=== PATIENT | female | born 1985 | race Caucasian/White ===

== ENCOUNTER 2020-01-19 15:09 | Outpatient (CLI) | payer MEDICAID ==
[~2020-01-19] VITALS: Ht 157 cm; Wt 80.1 kg
--- NOTE | 2020-01-19 15:17 | NUR ---
IGNACIO GANDHI presented to unit via ambulatory from ED, accompanied by S.O. , with c/o ELEV BP, PROTEIN IN URINE. IGNACIO GANDHI weighed, gowned, voided, and to bed. EFHM and TOCO applied, VS taken. IGNACIO GANDHI oriented to bed controls, call light, TV, heat, and A/C controls. Pt states just recently found out she was - see Dr Singletary 2-3 times. Admits to having a "meth problem" but quit when she found out she was . Approximately 2-3 weeks ago.
[2020-01-19] MEDS ORDERED: PREN1TAB19 PO (16:06)
[2020-01-19 16:15] VITALS: BP 138/85
[2020-01-19 16:18] VITALS: BP 134/79
[2020-01-19 16:44] VITALS: BP 138/85
[2020-01-19 16:56] LABS: BASOPHILS # (AUTO) 0.1 10^3/uL (0.0-0.1); BASOPHILS % (AUTO) 0 % (0-10); EOSINOPHILS # (AUTO) 0.2 10^3/uL (0.0-0.3); EOSINOPHILS % (AUTO) 1 % (0-10); HEMATOCRIT 35 % (35-52); HEMOGLOBIN 11.4 g/dL (11.5-16.0); LYMPHOCYTES # (AUTO) 2.1 10^3/uL (1.0-4.0); LYMPHOCYTES % (AUTO) 17 % (12-44); MEAN CORPUSCULAR HEMOGLOBIN 29 pg (25-34); MEAN CORPUSCULAR HGB CONC 32 g/dL (32-36); MEAN CORPUSCULAR VOLUME 90 fL (80-99); MEAN PLATELET VOLUME 9.9 fL (9.0-12.2); MONOCYTES # (AUTO) 0.7 10^3/uL (0.0-1.0); MONOCYTES % (AUTO) 6 % (0-12); NEUTROPHILS # (AUTO) 9.2 10^3/uL (1.8-7.8); NEUTROPHILS % (AUTO) 75 % (42-75); PLATELET COUNT 264 10^3/uL (130-400); WHITE BLOOD COUNT 12.3 10^3/uL (4.3-11.0)
[2020-01-19 16:59] LABS: ALBUMIN 3.4 GM/DL (3.2-4.5)
[2020-01-19 17:00] LABS: CHLORIDE 103 MMOL/L (98-107); SODIUM 136 MMOL/L (135-145)
[2020-01-19 17:01] LABS: CALCIUM 8.7 MG/DL (8.5-10.1)
[2020-01-19 17:02] LABS: GLUCOSE 77 MG/DL (70-105); TOTAL PROTEIN 6.8 GM/DL (6.4-8.2)
[2020-01-19 17:03] LABS: CARBON DIOXIDE 22 MMOL/L (21-32)
[2020-01-19 17:04] LABS: BILIRUBIN,TOTAL 0.5 MG/DL (0.1-1.0)
[2020-01-19 17:05] LABS: ALKALINE PHOSPHATASE 229 U/L (40-136)
[2020-01-19 17:06] LABS: CREATININE SERUM 0.71 MG/DL (0.60-1.30); GFR ESTIMATED > 60
[2020-01-19 17:07] LABS: BUN/CREATININE RATIO 11
[2020-01-19 17:09] LABS: ALANINE AMINOTRANSFERASE 13 U/L (0-55)
[2020-01-19 17:13] VITALS: BP 126/84
--- NOTE | 2020-01-19 17:16 | NUR ---
Notified Dr Singletary per text of labs and BP's. Will check cervix per physician orders and if less than 1 cm may be discharged. Pt continues to have contractions that she feels but not uncomfortable. Cervix closed and firm. Encouraged pt to drink plenty of fluids due to dark urine. Outpt instructions given and verbalized understanding. 1750 Ambulated to exit. Appointment 01/23/20.
[2020-01-19 17:28] LABS: BAND NEUTROPHILS 0 %; BASOPHILS % (MANUAL) 0 %; EOSINOPHILS % (MANUAL) 1 %; LYMPHOCYTES % (MANUAL) 16 %; MONOCYTES % (MANUAL) 3 %; NEUTROPHILS % (MANUAL) 80 %; RBC MORPH NORMAL
[2020-01-19 17:52] LABS: BILIRUBIN,URINE NEGATIVE (NEGATIVE); CLARITY,URINE CLEAR; COLOR,URINE YELLOW; GLUCOSE, URINE (UA) NEGATIVE (NEGATIVE); KETONES,URINE NEGATIVE (NEGATIVE); LEUKOCYTE ESTERASE ,URINE NEGATIVE (NEGATIVE); NITRITE,URINE NEGATIVE (NEGATIVE); PROTEIN,URINE TRACE (NEGATIVE)
[2020-01-19 18:03] LABS: BACTERIA,URINE TRACE /HPF
--- NOTE | 2020-01-22 09:32 | Physician Query-Final Dx ---
PETROS GONZALEZ 01/22/20 0932: Clinic Account Progress/Dx Physician Query: Please give diagnosis Please include # weeks gestation Date of Service Jan 19, 2020 at 15:09 NEW SILVA MD 01/22/20 1713: Clinic Account Progress/Dx DIAGNOSIS: Diagnosis Elevated blood pressure in third trimester of PETROS GONZALEZ Jan 22, 2020 09:32 NEW SILVA MD Jan 22, 2020 17:13
== END 2020-01-19 17:50 ==
LOC: WSo 15:09 → LDRP 15:09 → WSo 17:50
PROVIDERS: ATTEND Family Medicine
DX: O13.3 Gestational [pregnancy-induced] hypertension without significant proteinuria, third trimester (principal); Z3A.00 Weeks of gestation of pregnancy not specified
CPT/HCPCS: 36415; 80053; 81000; 82570; 83615; 84156; 84550; 85007; 85027; 99213

== ENCOUNTER 2020-02-01 14:32 | Observation (INO) | payer MEDICAID ==
[~2020-02-01] VITALS: Ht 157 cm; Wt 84.0 kg
[~2020-02-01 14:32] MED LIST: PREN1TAB19 PO
--- NOTE | 2020-02-01 14:37 | NUR ---
IGNACIO GANDHI presented to unit via ambulatory from ED, accompanied by self , with c/o ABN BIOPHYSICAL. IGNACIO GANDHI weighed, gowned, voided, and to bed. EFHM and TOCO applied, VS taken. IGNACIO GANDHI oriented to bed controls, call light, TV, heat, and A/C controls.
[2020-02-01 14:54] VITALS: BP 132/85
[2020-02-01 16:00] VITALS: BP 132/85
--- NOTE | 2020-02-01 17:00 | NUR ---
FHR 130's with accelerations. No contractions noted. Slept this afternoon.
[2020-02-01 19:09] LABS: AMPHETAMINE SCREEN, URINE NEGATIVE (NEGATIVE); BARBITURATE SCREEN URINE NEGATIVE (NEGATIVE); BENZODIAZEPINES SCREEN URINE NEGATIVE (NEGATIVE); CANNABINOID SCREEN, URINE POSITIVE (NEGATIVE); COCAINE SCREEN URINE NEGATIVE (NEGATIVE); METHADONE STAT NEGATIVE (NEGATIVE); METHAMPHETAMINE SCREEN URINE S NEGATIVE (NEGATIVE); OPIATE SCREEN URINE NEGATIVE (NEGATIVE); OXYCODONE STAT NEGATIVE (NEGATIVE); PROPOXYPHENE STAT NEGATIVE (NEGATIVE); TRICYCLIC ANTIDEPRESSANTS SCRE NEGATIVE (NEGATIVE)
--- NOTE | 2020-02-01 20:20 | NUR ---
INITIAL SHIFT ASSESSMENT DONE. VSS. PT PLEASANT AND DENIES ANY PAIN OR NEEDS AT THIS TIME.
[2020-02-01 20:30] VITALS: BP 126/80
[2020-02-01] MEDS ORDERED: diphenhydrAMINE 25 MG TAB (BENADRYL) PO ONE (22:30)
[2020-02-01] MEDS ORDERED: ACETAMINOPHEN 500 MG TAB (TYLENOL) PO PRN (22:30)
--- NOTE | 2020-02-01 22:30 | NUR ---
S/O HAS ARRIVED. MONITORS ADJUSTED. PT C/O SOME RESTLESS LEGS AND BEING UNCOMFORTABLE. OFFERED WARM BLANKET AND DECLINED.
--- NOTE | 2020-02-01 23:00 | NUR ---
DR SILVA CALLED TO REPORT PTS C/O INABILITY TO SLEEP AND CONSTANT LOW ABD PAIN. ORDER RECEIVED FOR TYLENOL AND BENADRYL.
--- NOTE | 2020-02-02 00:10 | NUR ---
VERY VERY ANXIOUS AT THIS TIME. REPORTS RESTLESS LEGS AND INABILITY TO SLEEP. EDUCATED THAT MOST ALL FAST ACTING ANXIETY MEDS ARE NOT SAFE IN , BUT COULD CALL DR SILVA TO ASK ABOUT OPTIONS IF PT DESIRES. PT REPORTS SHE UNDERSTANDS AND WILL CONT TO TRY TO RELAX.
[2020-02-02 02:00] VITALS: BP 121/79
--- NOTE | 2020-02-02 02:00 | NUR ---
VS OBTAINED. MONITORS ADJUSTED. NEW PAPER PLACED IN MONITOR. PT DENIES ANY NEEDS.
--- NOTE | 2020-02-02 04:15 | NUR ---
PT RESTING VERY SOUNDLY. NOT AWAKENED AT THIS TIME. RESP EVEN AND UNLABORED.
--- NOTE | 2020-02-02 05:50 | NUR ---
PT CONT TO REST WELL. NO S/S OF DISTRESS OR DISCOMFORT. PT NOT AWAKENED AT THIS TIME.
[2020-02-02 08:40] VITALS: BP 131/76
--- NOTE | 2020-02-02 08:40 | NUR ---
FHR 130's with accelerations. No contractions. 0911 Dr Singletary called to inquire regarding BPP - results 08/20. If NST reactive may be discharged. 0920 130's with accelerations. Reactive NST. 0945 To exit - ambulatory to exit with S.O.
--- NOTE | 2020-02-02 09:03 | Diagnostic Imaging Report ---
INDICATION: Biophysical profile. FINDINGS: A biophysical profile was performed. There is a single live fetus in a cephalic presentation. The heart rate was recorded at 135 BPM. The amniotic fluid index is 10.8 cm. The placenta is anterior. The overall biophysical profile score is 6 out of 8. There was a 2 point induction given for the lack of breathing movements visualized. IMPRESSION: Biophysical profile score 6 out of 8. Dictated by: Dictated on workstation # [id number]
[2020-02-02 09:45] VITALS: BP 131/76
--- NOTE | 2020-02-03 21:57 | Short Stay Summary ---
History of Present Illness History of Present Illness Reason for visit/HPI at 36 weeks gestation with elevated BP and grade 3 placenta, late care and methamphetamine use in , had outpatient BPP that was 4/8 (breathing, movement), sent for observation and repeat BPP. Date of Admission Feb 01, 2020 at 14:32 Date of Discharge Feb 02, 2020 at 09:45 Time Seen by Provider: 12:00 Attending Physician New Singletary MD Admitting Physician New Singletary MD Consult Allergies and Home Medications Allergies Coded Allergies: No Known Drug Allergies (Unverified , 01/19/20) Home Medications Vit/Iron Fumarate/FA 1 Each Tablet, 1 EACH PO DAILY, (Reported) Patient Home Medication List Home Medication List Reviewed: Yes Past Ldlifdd-Pbvhlw-Rgmbki Hx Patient Social History Alcohol Use: Denies Use Recreational Drug Use: Yes Drug of Choice: meth Smoking Status: Current Everyday Smoker Type Used: Cigars 2nd Hand Smoke Exposure: Yes Recent Foreign Travel: No Contact w/other who traveled: No Reproductive System Expected Date of Delivery: Feb 16, 2020 Hx : 4 Hx Para: 2 Hx Total # of Abortions (Spona: 1 Review of Systems Constitutional: no symptoms reported EENTM: no symptoms reported Respiratory: no symptoms reported Cardiovascular: no symptoms reported Gastrointestinal: no symptoms reported Genitourinary: no symptoms reported Musculoskeletal: no symptoms reported Skin: no symptoms reported Psychiatric/Neurological: No Symptoms Reported Physical Exam Vital Signs Vital Signs - First Documented 02/01/20 02/01/20 14:54 20:30 Temp 36.8 Pulse 86 Resp 16 B/P (MAP) 126/80 (95) Pulse Ox 97 O2 Delivery Room Air Capillary Refill : Less Than 3 Seconds Height, Weight, BMI Height: '" Weight: lbs. oz. kg; 34.07 BMI Method: General Appearance: No Apparent Distress Gastrointestinal: Other (gravid, nontender) Neurologic/Psychiatric: Alert, Other (easily distracted, seems confused intermittently) Skin: Normal Color, Warm/Dry Clinical Quality Measures Admission Status Admission Status: Observation Short Stay Diagnosis Discharge Diagnosis-Short Stay Admission Diagnosis: Abnormal biophysical profile 36 weeks gestation Substance use in Final Discharge Diagnosis: Reactive heart rate tracing, normal repeat BPP, 36 weeks gestation, substance use in , UDS positive for THC Conclusion Conclusion/Plan Repeat testing normal, monitoring normal all night, pt discharged with return precautions for decreased movement, etc. NEW SINGLETARY MD Feb 03, 2020 21:57
== END 2020-02-02 09:45 | disposition home or self-care (01) ==
LOC: LDRP 14:32
PROVIDERS: ADMIT Family Medicine; ATTEND Family Medicine
DX: O28.3 Abnormal ultrasonic finding on antenatal screening of mother (principal); Z3A.36 36 weeks gestation of pregnancy
CPT/HCPCS: 76819; 80306; G0378; G0379; 99211

== ENCOUNTER 2020-02-14 15:06 | Inpatient (IN) | payer MEDICAID ==
[2020-02-14] VITALS (42 sets, daily range): BP systolic 7–169; BP diastolic 31–103
[~2020-02-14] VITALS: Ht 160 cm; Wt 83.8 kg
--- NOTE | 2020-02-14 15:15 | NUR ---
Pt arrived to unit for IOL. Wt obtained and to room 318. Gowned and urine sample obtained. To bed and oriented to room, call light and surroundings. Plan of care reviewed with pt and s.o. present at bedside.
[2020-02-14] MEDS ORDERED: OXYTOCIN PRE-MIX DRIP 500 ML IV SCH (15:16)
[2020-02-14 15:49] LABS: BASOPHILS # (AUTO) 0.1 10^3/uL (0.0-0.1); BASOPHILS % (AUTO) 0 % (0-10); EOSINOPHILS # (AUTO) 0.1 10^3/uL (0.0-0.3); EOSINOPHILS % (AUTO) 0 % (0-10); HEMATOCRIT 36 % (35-52); HEMOGLOBIN 11.7 g/dL (11.5-16.0); LYMPHOCYTES % (AUTO) 14 % (12-44); MEAN CORPUSCULAR HEMOGLOBIN 29 pg (25-34); MEAN CORPUSCULAR HGB CONC 33 g/dL (32-36); MEAN CORPUSCULAR VOLUME 88 fL (80-99); MEAN PLATELET VOLUME 10.5 fL (9.0-12.2); MONOCYTES # (AUTO) 0.9 10^3/uL (0.0-1.0); MONOCYTES % (AUTO) 6 % (0-12); NEUTROPHILS # (AUTO) 11.4 10^3/uL (1.8-7.8); NEUTROPHILS % (AUTO) 79 % (42-75); PLATELET COUNT 273 10^3/uL (130-400); WHITE BLOOD COUNT 14.3 10^3/uL (4.3-11.0)
[2020-02-14 16:10] LABS: ALANINE AMINOTRANSFERASE 19 U/L (0-55); ALBUMIN 3.3 GM/DL (3.2-4.5); ALKALINE PHOSPHATASE 294 U/L (40-136); BILIRUBIN,TOTAL 0.3 MG/DL (0.1-1.0); BUN/CREATININE RATIO 15; CALCIUM 8.7 MG/DL (8.5-10.1); CARBON DIOXIDE 19 MMOL/L (21-32); CHLORIDE 104 MMOL/L (98-107); GFR ESTIMATED > 60; GLUCOSE 106 MG/DL (70-105); POTASSIUM 4.2 MMOL/L (3.6-5.0); SODIUM 134 MMOL/L (135-145)
[2020-02-14] MEDS: D5 LR IV SOLUTION 1,000 ML IV SCH ×2 (16:11→20:06)
--- NOTE | 2020-02-14 16:23 | History & Physical-OB ---
OB - Chief Complaint & HPI Date/Time Date of Admission: Date of Admission: Date seen by a Provider: Feb 14, 2020 Time Seen by a Provider: 15:45 Chief Complaint/History OB-Reason for Admission/Chief: Medical Complication Hx : 4 Hx Para: 2 Expected Date of Delivery: Feb 16, 2020 Gestational Age in Weeks: 39 Gestational Age in Days: 5 Indication for induction: medical complication Other reason for admission: at 39w5d presented to clinic for follow up and found to have hyperten jakob in the 140s. History of Labs O+, antibody neg, RNI. HepB/RPR/HIV neg. Glucola normal. GBS neg. Allergies and Home Medications Allergies Coded Allergies: No Known Drug Allergies (Unverified , 01/19/20) Home Medications Vit/Iron Fumarate/FA 1 Each Tablet, 1 EACH PO DAILY, (Reported) Patient Home Medication List Home Medication List Reviewed: Yes OB - History Hx of Present Care: Yes (late care, first visit at 33 weeks) Obstetrical Complications: Gestational Hypertension, Other (methamphetamine use) Information Induced Hypertension: Yes Maternal Gestational Diabetes: No Hemorrhage: No Obstetrical History Hx : 4 Hx Para: 2 Hx # Term Pregnancies: 2 Hx # Pregnancies: 0 Number of Living Children: 1 Hx Termination: No Hx Total # of Abortions (Spona: 1 Hx Multiple Gestation: No Hx Ectopic : Yes Hx Stillbirth: No Hx Complication: No Hx Induced Hypertens: Yes Hx Maternal Gestational Diabet: No Hx Hemorrhage: No Delivery History Hx Dystocia: No Hx Forceps Assisted Delivery: No Hx Vacuum Extraction Assisted: No Hx Placenta Abnormality: No Hx Distress: No Hx Large For Gestational Age I: No Hx Small for Gestational Age I: No Hx Section: No Hx Vaginal Delivery Post C-Sec: No Hx Blood Disorders: No Adverse Rxn to Tranfusion: No Patient Past Medical History PMHx: Substance abuse SurgHx: Ectopic Social History/Family History HIV/AIDS: No Recent Infectious Disease Expo: No Sexually Transmitted Disease: No Alcohol Use: Denies Use Recreational Drug Use: Yes (methamphetamine use, reported last use around 12/13) Smoking Cessation: Current every day smoker 2nd Hand Smoke Exposure: Yes Immunizations Hepatitis A: No Hepatitis B: No Tetanus Booster (TDap): Less than 5yrs (01/02/20) Rubella: not immune RPR/VDRL: Negative GBS Status: Negative HBsAG: Negative OB - Admission Exam Physical Exam Vitals: Vital Signs 02/14/20 15:41 Temp 36.6 Pulse 86 Resp 18 Pulse Ox 98 O2 Delivery Room Air HEENT: NCAT Abdomen: Non tender Extremities: Edema (trace) Cervical Dilatation: 3cm Effacement: 50% Station: -1 Membranes: Intact Heart Rate: 140's Accelerations: Accelerations Present Short Term Variability: Present Jail Variability: Average (6-25) Contractions on Admission: 6-10 Minutes Apart Arango Scoring Tool (Modified) Dilation (cm): 3-4cm (2) Effacement (%): 51-79% (2) Descent/Station: -1,0 (2) Cervix Consistency: Medium(1) Cervix Position: Posterior (0) Add 1 point for: Each previous vaginal delivery (1) (2) Arango Score: 9 Labs Laboratory Tests Test 02/14/20 15:30 Range/Units White Blood Count 14.3 H 4.3-11.0 10^3/uL Red Blood Count 4.08 3.80-5.11 10^6/uL Hemoglobin 11.7 11.5-16.0 g/dL Hematocrit 36 35-52 % Mean Corpuscular Volume 88 80-99 fL Mean Corpuscular Hemoglobin 29 25-34 pg Mean Corpuscular Hemoglobin Concent 33 32-36 g/dL Red Cell Distribution Width 14.5 10.0-14.5 % Platelet Count 273 130-400 10^3/uL Mean Platelet Volume 10.5 9.0-12.2 fL Immature Granulocyte % (Auto) 1 % Neutrophils (%) (Auto) 79 H 42-75 % Lymphocytes (%) (Auto) 14 12-44 % Monocytes (%) (Auto) 6 0-12 % Eosinophils (%) (Auto) 0 0-10 % Basophils (%) (Auto) 0 0-10 % Neutrophils # (Auto) 11.4 H 1.8-7.8 10^3/uL Lymphocytes # (Auto) 2.0 1.0-4.0 10^3/uL Monocytes # (Auto) 0.9 0.0-1.0 10^3/uL Eosinophils # (Auto) 0.1 0.0-0.3 10^3/uL Basophils # (Auto) 0.1 0.0-0.1 10^3/uL Immature Granulocyte # (Auto) 0.1 0.0-0.1 10^3/uL Sodium Level 134 L 135-145 MMOL/L Potassium Level 4.2 3.6-5.0 MMOL/L Chloride Level 104 98-107 MMOL/L Carbon Dioxide Level 19 L 21-32 MMOL/L Anion Gap 11 5-14 MMOL/L Blood Urea Nitrogen 12 7-18 MG/DL Creatinine 0.80 0.60-1.30 MG/DL Estimat Glomerular Filtration Rate > 60 BUN/Creatinine Ratio 15 Glucose Level 106 H 70-105 MG/DL Uric Acid 5.0 2.6-7.2 MG/DL Calcium Level 8.7 8.5-10.1 MG/DL Corrected Calcium 9.3 8.5-10.1 MG/DL Total Bilirubin 0.3 0.1-1.0 MG/DL Aspartate Amino Transf (AST/SGOT) 27 5-34 U/L Alanine Aminotransferase (ALT/SGPT) 19 0-55 U/L Alkaline Phosphatase 294 H 40-136 U/L Lactate Dehydrogenase 227 H 125-220 U/L Total Protein 7.0 6.4-8.2 GM/DL Albumin 3.3 3.2-4.5 GM/DL OB - Assessment/Plan/Diagnosis Assessment Admission Dx Term intrauterine at 39 weeks gestation Gestational hypertension History of methamphetamine use Group B strep negative Rubella non-immune Admission Status: Inpatient Order (span 2 midnights) Reason for Inpatient Admission: Induction, labor, delivery and course Plan Plan: Induction Induction Method: per Pitocin Protocol Other Plan AROM done at time of exam with clear fluid check preeclampsia labs social media coordinator consult NEW SILVA MD Feb 14, 2020 16:23
[2020-02-14] MEDS ORDERED: fentaNYL 2 mcg/ml BUPIVA 0.125 100 ML ONE (16:41)
[2020-02-14 16:42] LABS: AMPHETAMINE SCREEN, URINE NEGATIVE (NEGATIVE); BARBITURATE SCREEN URINE NEGATIVE (NEGATIVE); BENZODIAZEPINES SCREEN URINE NEGATIVE (NEGATIVE); CANNABINOID SCREEN, URINE POSITIVE (NEGATIVE); COCAINE SCREEN URINE NEGATIVE (NEGATIVE); METHADONE STAT NEGATIVE (NEGATIVE); METHAMPHETAMINE SCREEN URINE S NEGATIVE (NEGATIVE); OPIATE SCREEN URINE NEGATIVE (NEGATIVE); OXYCODONE STAT NEGATIVE (NEGATIVE); PROPOXYPHENE STAT NEGATIVE (NEGATIVE); TRICYCLIC ANTIDEPRESSANTS SCRE NEGATIVE (NEGATIVE)
[2020-02-14 16:47] LABS: URINE CREATININE FOR RATIO 274 MG/DL (30-125)
[2020-02-14 16:48] LABS: URINE PROTEIN FOR RATIO ONLY 32 MG/DL (6-12)
[2020-02-14 17:06] LABS: EOSINOPHILS % (MANUAL) 2 %; LYMPHOCYTES % (MANUAL) 16 %; MONOCYTES % (MANUAL) 3 %; NEUTROPHILS % (MANUAL) 79 %; RBC MORPH NORMAL
[2020-02-14] MEDS ORDERED: fentaNYL INJECTION 100 MCG/2 ML AMP ONE (18:42)
[2020-02-14] MEDS ORDERED: LACTATED RINGERS 1,000 ML IV ONE (18:43)
[2020-02-14] MEDS ORDERED: fentaNYL 2 mcg/ml BUPIVA 0.125 100 ML IV SCH (18:43)
[2020-02-14] MEDS ORDERED: NALOXONE 0.4 MG/ML 1 ML (NARCAN) VIAL IV PRN (18:45)
[2020-02-14] MEDS ORDERED: CATHETER FLUSH 10 ML SYR IV PRN (18:45)
[2020-02-14] MEDS: CALCIUM CARBONATE 500 MG (TUMS) TAB.CHEW PO NR ×2 (20:06→23:06)
[2020-02-14] MEDS ORDERED: CATHETER FLUSH 10 ML SYR IV SCH (22:00)
[2020-02-14] MEDS ORDERED: MINERAL OIL CONCENTRATE 99.9% 15 ML UDC ONE (22:07)
[2020-02-15] VITALS (12 sets, daily range): BP systolic 111–157; BP diastolic 60–89
--- NOTE | 2020-02-15 00:11 | OB Labor & Delivery Record ---
Vag Delivery Note Vag Delivery Note Date of Delivery: 02/15/20 Preoperative Diagnosis: Fallon Small is a (34 /Para 4 / 2,Gestational Age (wks)39with 5 days Postoperative Diagnosis: Same Surgeon: NEW SILVA Temperer: Opal Tillman, MS3 Anesthesia: Epidural Delivery Type: Findings: Viable male , apgars 9/9, weight 7#5 Lacerations: periurethral abrasions Intact placenta with 3 vessel cord. No nuchal cord, body cord or shoulder dystocia Estimated Blood Loss: 200 ml Complications: None Condition: Stable Description of Procedure: The patient is a 34 year old female who presented for induction of labor due to gestational hypertension. She was admitted and informed consent was obtained. Her labor course was unremarkable. She progressed to complete dilatation and began to push. She was then set up for delivery. The 's head was delivered atraumatically in the OA position. The shoulders and remainder of the infant's body were then delivered without difficulty. Upon delivery, the infant was vigorous and placed on maternal abdomen. After a delay, the cord was doubly clamped and cut and the infant was handed off to the pediatric staff. An intact placenta with 3-vessel cord delivered via Mynor and there was found to be minimal bleeding.~ Vigorous fundal massage was performed and the fundus was found to be firm. IV oxytocin was given. Examination of the vagina and perineum revealed periurethral abrasions and no laceration requiring repair. Following the delivery, sponge, instrument and needle counts were correct. Mom and baby were both in stable condition in the labor suite. Vitals - Labs Vital Signs - I&O Vital Signs Date Time Temp Pulse Resp B/P (MAP) Pulse Ox O2 Delivery O2 Flow Rate FiO2 02/14/20 21:55 65 18 125/56 (79) 100 02/14/20 21:40 60 18 116/67 (83) 100 02/14/20 21:25 59 18 112/66 (81) 100 02/14/20 21:10 59 18 127/79 (95) 99 02/14/20 20:55 58 18 121/72 (88) 100 02/14/20 20:40 70 18 121/70 (87) 100 02/14/20 20:25 36.0 85 18 110/67 (81) 100 02/14/20 20:10 68 18 119/65 (83) 100 02/14/20 20:05 84 18 111/64 (80) 100 02/14/20 20:00 73 18 81/50 (60) 100 02/14/20 19:45 65 18 108/56 (73) 100 02/14/20 19:40 69 18 116/63 (80) 100 02/14/20 19:38 109/58 (75) 02/14/20 19:35 74 18 109/59 (76) 96 02/14/20 19:34 69/31 (44) 02/14/20 19:33 72/39 (50) 02/14/20 19:30 70 18 77/40 (52) 97 02/14/20 19:25 86 18 107/51 (69) 97 02/14/20 19:20 105 18 108/59 (75) 99 02/14/20 19:15 96 18 138/61 (86) 99 02/14/20 19:10 82 18 145/69 (94) 98 02/14/20 19:05 84 18 147/69 (95) 98 02/14/20 19:00 85 18 148/69 (95) 98 02/14/20 18:55 86 18 167/74 (105) 98 02/14/20 18:50 86 18 169/74 (105) 98 02/14/20 18:45 83 18 163/103 (123) 98 02/14/20 18:30 72 18 139/83 (101) 02/14/20 18:15 73 18 134/76 (95) 02/14/20 18:00 66 18 119/74 (89) 02/14/20 17:45 73 18 126/74 (91) 02/14/20 17:30 74 18 128/72 (90) 02/14/20 17:15 78 18 131/83 (99) 02/14/20 17:00 76 18 128/81 (97) 02/14/20 15:41 36.6 86 18 98 Room Air 02/14/20 15:30 99 18 148/90 (109) 98 I & O 02/15/20 07:00 Intake Total 1000 ml Balance 1000 ml Labs Laboratory Tests 02/14/20 15:30: White Blood Count 14.3H, Red Blood Count 4.08, Hemoglobin 11.7, Hematocrit 36, Mean Corpuscular Volume 88, Mean Corpuscular Hemoglobin 29, Mean Corpuscular Hemoglobin Concent 33, Red Cell Distribution Width 14.5, Platelet Count 273, Mean Platelet Volume 10.5, Immature Granulocyte % (Auto) 1, Neutrophils (%) (Auto) 79H, Lymphocytes (%) (Auto) 14, Monocytes (%) (Auto) 6, Eosinophils (%) (Auto) 0, Basophils (%) (Auto) 0, Neutrophils # (Auto) 11.4H, Lymphocytes # (Auto) 2.0, Monocytes # (Auto) 0.9, Eosinophils # (Auto) 0.1, Basophils # (Auto) 0.1, Immature Granulocyte # (Auto) 0.1, Neutrophils % (Manual) 79, Lymphocytes % (Manual) 16, Monocytes % (Manual) 3, Eosinophils % (Manual) 2, Blood Morphology Comment NORMAL, Sodium Level 134L, Potassium Level 4.2, Chloride Level 104, Carbon Dioxide Level 19L, Anion Gap 11, Blood Urea Nitrogen 12, Creatinine 0.80, Estimat Glomerular Filtration Rate > 60, BUN/Creatinine Ratio 15, Glucose Level 106H, Uric Acid 5.0, Calcium Level 8.7, Corrected Calcium 9.3, Total Bilirubin 0.3, Aspartate Amino Transf (AST/SGOT) 27, Alanine Aminotransferase (ALT/SGPT) 19, Alkaline Phosphatase 294H, Lactate Dehydrogenase 227H, Total Protein 7.0, Albumin 3.3 02/14/20 16:10: Urine Protein 32H, Urine Creatinine 274H, Urine Protein/Creatinine Ratio 0.12, Urine Opiates Screen NEGATIVE, Urine Oxycodone Screen NEGATIVE, Urine Methadone Screen NEGATIVE, Urine Propoxyphene Screen NEGATIVE, Urine Barbiturates Screen NEGATIVE, Ur Tricyclic Antidepressants Screen NEGATIVE, Urine Phencyclidine Screen NEGATIVE, Urine Amphetamines Screen NEGATIVE, Urine Methamphetamines Screen NEGATIVE, Urine Benzodiazepines Screen NEGATIVE, Urine Cocaine Screen NEGATIVE, Urine Cannabinoids Screen POSITIVEH NEW SILVA MD Feb 15, 2020 00:11
[2020-02-15] MEDS ORDERED: MEASLES,MUMPS,RUBELLA 1 EA INJ SQ ONE (00:45)
[2020-02-15] MEDS ORDERED: MINERAL OIL CONCENTRATE 99.9% 15 ML UDC TOP PRN (00:45)
[2020-02-15] MEDS ORDERED: BENZOCAINE/MENTHOL (DERMOPLAST) 60 ML CAN TP PRN (00:45)
[2020-02-15] MEDS ORDERED: WITCH HAZEL(TUCKS) 40 EA JAR TOP PRN (00:45)
[2020-02-15] MEDS ORDERED: OXYTOCIN PRE-MIX DRIP 500 ML IV SCH (00:45)
[2020-02-15] MEDS ORDERED: ACETAMINOPHEN 500 MG TAB (TYLENOL) ONE (01:00)
[2020-02-15] MEDS: ACETAMINOPHEN 500 MG TAB (TYLENOL) PO SCH ×4 (01:02→20:29)
--- NOTE | 2020-02-15 02:05 | NUR ---
Patient ambulated to bathroom with standby assist without difficulty. Positive void noted. Light rubra bleeding, no clots noted.
--- NOTE | 2020-02-15 02:10 | NUR ---
Patient transferred to PP room 309, accompanied by staff, Infant in crib, and S.O. Patient oriented to room, room service, call light, bed controls, and thermostat. PP packet given and explained, patient verbalized understanding. Fresh ice water provided.
[2020-02-15] MEDS ORDERED: CATHETER FLUSH 10 ML SYR IV SCH (06:00)
--- NOTE | 2020-02-15 07:16 | Anesthesia-Regional Post-Op ---
Regional Patient Condition Mental Status: Alert, Oriented x3 Circulation: Same as Pre-Op Headache: Absent Sensation: Full Recovery Motor Block: Absent Post Op Complications Complications None Follow Up Care/Instructions Patient Instructions None needed. Anesthesia/Patient Condition Patient is doing well, no complaints, stable vital signs, no apparent adverse anesthesia problems. No complications reported per nursing. ROSETTE BORGES CRNA Feb 15, 2020 07:16
[2020-02-15] MEDS: DOCUSATE SODIUM 100 MG (COLACE) CAP PO SCH ×2 (08:05→20:28)
--- NOTE | 2020-02-15 08:05 | NUR ---
RN to room for assessment. VSS. FFU/-1. Pt reports minimal bleeding and no clots expressed. S.O at bedside, feeding . Mother denies any pain and denies any needs or concerns at this time.
--- NOTE | 2020-02-15 11:42 | NUR ---
CM/SS visited with patient for social service consult. [facility] report ID: [id number] The patient (mother of baby) and Father of baby (FOB) were laying in bed with baby. They were both pleasant and willing to discuss discharge. Home: The patient lives with the FOB's mother. They report that she is a good support for them. They verbalized they have everything they need at home for baby. They received a car seat from [facility]. Substance use: The patient reports that she does have a past history of drug use. The patient admitted to using Methamphetamines at the beginning of due to not knowing she was . She stated once she found out she stopped use. The patient's UDS is positive for Marijuana. The patient reports that she is planning to meet with India Gonzalez at the [facility] for outpatient addiction counseling. Resources: The patient is not set up with [facility] but states they have the number and are planning to call. CM/SS discussed resources for Healthy Families, Parents as Teachers, to 3, and [facility]. The patient was very interested in these services; however, patient wanted to set up referrals for herself. She is connected with the [facility]. Custody: The patient reports she has joint custody of her daughter. The father of the son has full custody. Employment: The patient is not employed nor is she receiving financial assistance. The FOB is receiving "PUA" that is financial assistance for Covid. He plans to return to work soon. No further needs at this time.
--- NOTE | 2020-02-15 20:25 | NUR ---
INITIAL SHIFT ASSESSMENT DONE. PT DENIES ANY PAIN OR C/O'S.
--- NOTE | 2020-02-15 20:30 | NUR ---
PT UP TO SHOWER AT THIS TIME.
--- NOTE | 2020-02-15 23:50 | NUR ---
SPRITE GIVEN. DENIES ANY NEEDS.
[2020-02-16 03:20] VITALS: BP 141/81
--- NOTE | 2020-02-16 03:20 | NUR ---
TYLENOL ADMINISTERED. PT DENIES ANY PAIN OR C/O'S.
[2020-02-16] MEDS: ACETAMINOPHEN 500 MG TAB (TYLENOL) PO SCH ×2 (03:21→09:56)
[2020-02-16 05:35] LABS: BASOPHILS # (AUTO) 0.1 10^3/uL (0.0-0.1); BASOPHILS % (AUTO) 1 % (0-10); EOSINOPHILS # (AUTO) 0.2 10^3/uL (0.0-0.3); EOSINOPHILS % (AUTO) 2 % (0-10); HEMATOCRIT 36 % (35-52); HEMOGLOBIN 11.4 g/dL (11.5-16.0); LYMPHOCYTES # (AUTO) 3.1 10^3/uL (1.0-4.0); LYMPHOCYTES % (AUTO) 27 % (12-44); MEAN CORPUSCULAR HEMOGLOBIN 29 pg (25-34); MEAN CORPUSCULAR HGB CONC 32 g/dL (32-36); MEAN CORPUSCULAR VOLUME 92 fL (80-99); MEAN PLATELET VOLUME 10.5 fL (9.0-12.2); MONOCYTES # (AUTO) 0.8 10^3/uL (0.0-1.0); MONOCYTES % (AUTO) 7 % (0-12); NEUTROPHILS % (AUTO) 62 % (42-75); PLATELET COUNT 249 10^3/uL (130-400); WHITE BLOOD COUNT 11.2 10^3/uL (4.3-11.0)
--- NOTE | 2020-02-16 06:20 | NUR ---
PT CONT TO DENY NEEDS.
--- NOTE | 2020-02-16 07:46 | Discharge Summary ---
Diagnosis/Chief Complaint Date of Admission Feb 14, 2020 at 15:17 Date of Discharge February 16, 2020 Admission Diagnosis Admission Diagnosis 1. Intrauterine at 39 weeks 5 days gestation 2. History of methamphetamine use 3. Gestational hypertension Discharge Diagnosis 1. Intrauterine at 39 weeks 5 days gestation 2. History of methamphetamine use 3. Gestational hypertension Chief Complaint/HPI Chief Complaint/HPI 34-year-old 4 now term for who initially presented to labor and delivery during the evening of February 14, 2020. Patient was at 39 weeks 5 days gestation. She received her care through [facility] and was followed by Dr. Singletary. Discharge Summary-OBS Procedures 1. Epidural per anesthesia 2. Spontaneous vaginal deliveryDr. Hayder Discharge Physical Examination Allergies: Coded Allergies: No Known Drug Allergies (Unverified , 01/19/20) Vitals & I&Os Vital Sign - Last 12Hours Date Time Temp Pulse Resp B/P (MAP) Pulse Ox O2 Delivery O2 Flow Rate FiO2 02/16/20 03:20 36.8 71 18 141/81 (101) 100 Room Air General Appearance: No Acute Distress Respiratory: Clear to Auscultation Cardiovascular: Regular Rate Abdominal: Soft (with uterus firm) Hospital Course Was the Problem List Reviewed?: Yes following admission patient underwent labor course and ultimately delivered during the late evening of February 14, 2020 spontaneous vaginal. Infant was delivered a term viable male with Apgars of 9 at 1 minute and 9 at 5 minutes. Mother had no perineal lacerations. See labor and delivery note for full details. Following delivery she underwent routine care orders. Social s ervices was counseled regarding her home situation. visitor services information assistant reviewed and cleared her to go home. Her hemoglobin on admission was 11.7 and this was compared to dismissal of 11.4. Patient was very stable hemodynamically. She was without any lightheadedness. She tolerated a regular diet. She denied any chest pain or leg pain. She was felt ready for dismissal during the day of February 16, 2020. Labs Laboratory Tests 02/15/20 11:25: Syphilis Serology Non-Reactive 02/16/20 05:21: White Blood Count 11.2H, Red Blood Count 3.94, Hemoglobin 11.4L, Hematocrit 36, Mean Corpuscular Volume 92, Mean Corpuscular Hemoglobin 29, Mean Corpuscular Hemoglobin Concent 32, Red Cell Distribution Width 14.6H, Platelet Count 249, Mean Platelet Volume 10.5, Immature Granulocyte % (Auto) 1, Neutrophils (%) (Auto) 62, Lymphocytes (%) (Auto) 27, Monocytes (%) (Auto) 7, Eosinophils (%) (Auto) 2, Basophils (%) (Auto) 1, Neutrophils # (Auto) 7.0, Lymphocytes # (Auto) 3.1, Monocytes # (Auto) 0.8, Eosinophils # (Auto) 0.2, Basophils # (Auto) 0.1, Immature Granulocyte # (Auto) 0.1 Discharge Instructions to patient/family Please see electronic discharge instructions given to patient. Discharge Medications Reviewed and agree with Discharge Medication list on patient's Discharge Instruction sheet Clinical Quality Measures DVT/VTE Risk/Contraindication: Risk Factor Score Per Nursin RFS Level Per Nursing on Admit: 2=Moderate Copy Copies To 1: NEW SINGLETARY MD, DANIEL J MD Feb 16, 2020 07:46
--- NOTE | 2020-02-16 07:49 | Discharge Inst-Women's Service ---
Discharge Inst-Women's Serv Depart Medication/Instructions New, Converted or Re-Newed RX: Other Instructions May take ibuprofen 200 mg tablet for cramping. May utilize 3 tablets for a total dose of 600 mg every 6 hours as needed. Problems Reviewed?: Yes Consults/Follow Up Additional Follow Up: Yes (Dr. Singletary in 6 weeks) Activity Activity: Activity as Tolerated Driving Instructions: No Driving for 1 Week Nothing Inside Vagina: No [place] (for 6 weeks) Diet Discharge Diet: Regular Diet Return to The Hospital For: as below Symptoms to Report to : Bleeding Excessive, Fever Over 101 Degrees F, Vaginal Discharge Foul For Any Problems or Questions: Contact Your Physician MARKO HEATON MD Feb 16, 2020 07:49
[2020-02-16 08:05] VITALS: BP 132/74
[2020-02-16] MEDS: DOCUSATE SODIUM 100 MG (COLACE) CAP PO SCH (09:55)
--- NOTE | 2020-02-16 10:15 | NUR ---
IGNACIO SMALL demonstrates understanding of discharge instructions and accurately returns instructions upon questioning. Copy of Post-Discharge Instructions and Medication Discharge Instructions given to Jose Small. IGNACIO SMALL is able to manage continuing needs after discharge. Patients belongings returned to patient. Skin dry and intact; no breakdown noted. Patient discharged from 3309- on at 1015 . IGNACIO SMALL left floor via ambulation, accompanied by significant other and women services staff.
--- NOTE | 2020-02-16 11:39 | NUR ---
KARAN/ALICE follow up. KARAN/ALICE received message from care management that an Nicole at [facility] ([phone]) needed a call back SANTINO. This message was received at 10:52 a.m. KARAN/ALICE contacted Nicole back at 11:05 a.m. to discuss patient. Nicole wanted to know if patient had discharged. KARAN/ALICE reviewed chart notes and found patient had discharged this morning at 10:15 a.m. today 02/16/20. Nicole verbalized that the patient has an outstanding Warrant for drug possession and "Absconded on September 20." KARAN/ALICE provided the addresses on the face sheet with a phone numbers. She reports she will attempt to track her down. No further needs. Addendum: 02/16/20 at 1314 by JONI HUNG KARAN/ALICE update: Received call from Nicole, she wanted to know if we had a urine drug screen on Baby. KARAN/ALICE contacted the department and asked if they sent off Meconium. They reported no, they did not. KARAN/SS contacted Nicole back and gave update. KARAN/ALICE faxed patient's positive urine drug screen to [facility] office. Nicole reports they were able to get in touch with the patient and significant other. She verbalized she will have the police escort her to the home.
== END 2020-02-16 10:15 | disposition home or self-care (01) | DRG 807 ==
LOC: WSo 15:06 → LDRP 15:07 → WSo 15:17 → LDRP 15:17
PROVIDERS: ADMIT Family Medicine; ATTEND Family Medicine
PROC: 10E0XZZ Delivery of Products of Conception, External Approach (ICD-10-PCS; principal; 2020-02-15)
DX: O13.4 Gestational [pregnancy-induced] hypertension without significant proteinuria, complicating childbirth (principal); Z37.0 Single live birth; Z3A.39 39 weeks gestation of pregnancy; O71.82 Other specified trauma to perineum and vulva; O99.334 Smoking (tobacco) complicating childbirth; F17.210 Nicotine dependence, cigarettes, uncomplicated
CPT/HCPCS: 36415; 80053; 80306; 82570; 83615; 84156; 84550; 85007; 85025; 85027; 86780; 86850; 86900; 86901; 87635; 90707

== ENCOUNTER 2021-07-22 10:33 | Emergency (ER) | payer SELFPAY ==
[~2021-07-22] VITALS: Ht 157 cm; Wt 63.0 kg
[2021-07-22 10:54] LABS: BILIRUBIN,URINE NEGATIVE (NEGATIVE); CLARITY,URINE CLEAR; COLOR,URINE YELLOW; GLUCOSE, URINE (UA) NEGATIVE (NEGATIVE); KETONES,URINE NEGATIVE (NEGATIVE); LEUKOCYTE ESTERASE ,URINE 1+ (NEGATIVE); NITRITE,URINE NEGATIVE (NEGATIVE); PH,URINE 6.5 (5-9); PROTEIN,URINE NEGATIVE (NEGATIVE)
[2021-07-22 11:11] LABS: BASOPHILS # (AUTO) 0.1 10^3/uL (0.0-0.1); BASOPHILS % (AUTO) 1 % (0-10); EOSINOPHILS # (AUTO) 0.3 10^3/uL (0.0-0.3); EOSINOPHILS % (AUTO) 2 % (0-10); HEMATOCRIT 41 % (35-52); HEMOGLOBIN 13.5 g/dL (11.5-16.0); LYMPHOCYTES # (AUTO) 2.8 10^3/uL (1.0-4.0); LYMPHOCYTES % (AUTO) 19 % (12-44); MEAN CORPUSCULAR HEMOGLOBIN 31 pg (25-34); MEAN CORPUSCULAR HGB CONC 33 g/dL (32-36); MEAN CORPUSCULAR VOLUME 92 fL (80-99); MEAN PLATELET VOLUME 9.8 fL (9.0-12.2); MONOCYTES # (AUTO) 1.1 10^3/uL (0.0-1.0); MONOCYTES % (AUTO) 7 % (0-12); NEUTROPHILS # (AUTO) 10.6 10^3/uL (1.8-7.8); NEUTROPHILS % (AUTO) 71 % (42-75); PLATELET COUNT 329 10^3/uL (130-400); WHITE BLOOD COUNT 14.9 10^3/uL (4.3-11.0)
[2021-07-22 11:17] LABS: BACTERIA,URINE NEGATIVE /HPF; SQUAMOUS EPITHELIAL CELL,UR 0-2 /HPF; TRICHOMONAS,URINE FEW /HPF; WBC,URINE RARE /HPF
[2021-07-22 11:22] LABS: INR 0.9 (0.8-1.4)
--- NOTE | 2021-07-22 11:22 | ED GI ---
General Chief Complaint: OB > 20 WEEKS Stated Complaint: CRAMPING- Nursing Triage Note: ARRIVED VIA AMB TO ROOM 03. PT HAS NOT HAD CARE. STATES SHE THINKS SHE IS ABOUT 20 WEEKS AND HAS BEEN LEAKING FLUID X2 DAYS AND CRAMPING STARTED THIS AM. OB STATES THEY HAVE CALLED DR MAHONEY WHO WANTED THE PT TO BE SEEN IN THE ER FIRST. Source of Information: Patient Exam Limitations: No Limitations History of Present Illness Date Seen by Provider: July 22, 2021 Time Seen by Provider: 10:52 Initial Comments Patient to the ER by private conveyance from [facility] with chief complaint that she is cramping. She found out about a month or so ago that she was by urine test. She has been having a heavier yellowish non malodorous discharge for the past couple days. Cramping started this morning. Her last use of methamphetamines was 3 weeks ago. She does still smoke cigarettes. She is on multivitamin but not a vitamin. She has an appointment later in the week with Dr. Singletary for obstetrics. She is a G5, P3 with unclear last menstrual period. She has had no care or imaging. She is not having any bleeding. With her last she had preeclampsia. She is not having any swelling or history of hypertension or hypertension. Nursing reports her initial blood pressure is 140/100 and she has a heart tone of 152. Allergies and Home Medications Allergies Coded Allergies: No Known Drug Allergies (Unverified , 01/19/20) Patient Home Medication List Home Medication List Reviewed: Yes Vit/Iron Fumarate/FA ( Vitamins Tablet) 1 Each Tablet, 1 EACH PO DAILY, (Reported) Entered as Reported by: ISH MOYA on 01/19/20 8027 Review of Systems Review of Systems Constitutional: No chills, No fever; malaise EENTM: No Blurred Vision, No Double Vision Respiratory: Denies Cough, Denies Shortness of Air, Denies SOA at Rest Cardiovascular: Denies Chest Pain, Denies Edema, Denies Lightheadedness Gastrointestinal: Abdominal Pain (Bilateral lower pelvis); Denies Constipated, Denies Diarrhea, Denies Nausea Genitourinary: Denies Burning, Denies Discharge Musculoskeletal: No back pain, No joint pain All Other Systems Reviewed Negative Unless Noted: Yes Past Uqnpqsn-Xvodgh-Nksbbt Hx Patient Social History Tobacco Use?: Yes Smoking Status: Current Everyday Smoker Use of E-Cig and/or Vaping dev: No Substance use?: Yes Substance type: Methamphetamine, Marijuana Alcohol Use?: No Immunizations Up To Date Tetanus Booster (TDap): Less than 5yrs PED Vaccines UTD: Yes First/Initial COVID19 Vaccinat: UNKNOWN DATE COVID19 Vaccine 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 Physical Exam Vital Signs Vital Signs - First Documented 07/22/21 10:33 Pulse 88 Resp 16 B/P (MAP) 143/101 (115) Pulse Ox 99 O2 Delivery Room Air Capillary Refill : Less Than 3 Seconds Height/Weight/BMI Height: '" Weight: lbs. oz. kg; 25.00 BMI Method: General Appearance: WD/WN, no apparent distress HEENT: PERRL/EOMI (Inward deviation of right eye, chronic), normal ENT inspection Neck: full range of motion, normal inspection Respiratory: lungs clear, normal breath sounds, no respiratory distress, no accessory muscle use Cardiovascular: normal peripheral pulses, regular rate, rhythm, no edema Peripheral Pulses: 2+ Dorsalis Pedis (R), 2+ Left Dors-Pedis (L) Gastrointestinal: normal bowel sounds, soft, tenderness (Mild tenderness to palpation bilateral lower quadrants without Rovsing sign or mesenteric signs) Extremities: normal range of motion, non-tender, normal capillary refill, other (Gravid, fundus palpable approximately 1 fingertip below the umbilicus.) Neurologic/Psychiatric: alert, normal mood/affect, oriented x 3 Skin: normal color, warm/dry Progress/Results/Core Measures Results/Orders Lab Results Laboratory Tests Test 07/22/21 10:44 07/22/21 10:46 07/22/21 11:08 Range/Units Urine Color YELLOW Urine Clarity CLEAR Urine pH 6.5 5-9 Urine Specific [place] <=1.005 1.016-1.022 Urine Protein NEGATIVE NEGATIVE Urine Glucose (UA) NEGATIVE NEGATIVE Urine Ketones NEGATIVE NEGATIVE Urine Nitrite NEGATIVE NEGATIVE Urine Bilirubin NEGATIVE NEGATIVE Urine Urobilinogen 0.2 < = 1.0 MG/DL Urine Leukocyte Esterase 1+ H NEGATIVE Urine RBC (Auto) NEGATIVE NEGATIVE Urine RBC NONE /HPF Urine WBC RARE /HPF Urine Squamous Epithelial Cells 0-2 /HPF Urine Crystals NONE /LPF Urine Bacteria NEGATIVE /HPF Urine Casts NONE /LPF Urine Mucus NEGATIVE /LPF Urine Trichomonas FEW H /HPF Urine Culture Indicated NO White Blood Count 14.9 H 4.3-11.0 10^3/uL Red Blood Count 4.41 3.80-5.11 10^6/uL Hemoglobin 13.5 11.5-16.0 g/dL Hematocrit 41 35-52 % Mean Corpuscular Volume 92 80-99 fL Mean Corpuscular Hemoglobin 31 25-34 pg Mean Corpuscular Hemoglobin Concent 33 32-36 g/dL Red Cell Distribution Width 12.6 10.0-14.5 % Platelet Count 329 130-400 10^3/uL Mean Platelet Volume 9.8 9.0-12.2 fL Immature Granulocyte % (Auto) 1 % Neutrophils (%) (Auto) 71 42-75 % Lymphocytes (%) (Auto) 19 12-44 % Monocytes (%) (Auto) 7 0-12 % Eosinophils (%) (Auto) 2 0-10 % Basophils (%) (Auto) 1 0-10 % Neutrophils # (Auto) 10.6 H 1.8-7.8 10^3/uL Lymphocytes # (Auto) 2.8 1.0-4.0 10^3/uL Monocytes # (Auto) 1.1 H 0.0-1.0 10^3/uL Eosinophils # (Auto) 0.3 0.0-0.3 10^3/uL Basophils # (Auto) 0.1 0.0-0.1 10^3/uL Immature Granulocyte # (Auto) 0.1 0.0-0.1 10^3/uL Neutrophils % (Manual) 73 % Lymphocytes % (Manual) 13 % Monocytes % (Manual) 12 % Eosinophils % (Manual) 2 % Basophils % (Manual) 0 % Band Neutrophils 0 % Blood Morphology Comment NORMAL Prothrombin Time 12.0 L 12.2-14.7 SEC INR Comment 0.9 0.8-1.4 Fibrinogen 491 221-496 MG/DL Sodium Level 135 135-145 MMOL/L Potassium Level 4.2 3.6-5.0 MMOL/L Chloride Level 101 98-107 MMOL/L Carbon Dioxide Level 24 21-32 MMOL/L Anion Gap 10 5-14 MMOL/L Blood Urea Nitrogen 16 7-18 MG/DL Creatinine 0.69 0.60-1.30 MG/DL Estimat Glomerular Filtration Rate 116 BUN/Creatinine Ratio 23 Glucose Level 90 70-105 MG/DL Calcium Level 9.6 8.5-10.1 MG/DL Corrected Calcium 9.8 8.5-10.1 MG/DL Total Bilirubin 0.2 0.1-1.0 MG/DL Aspartate Amino Transf (AST/SGOT) 14 5-34 U/L Alanine Aminotransferase (ALT/SGPT) 12 0-55 U/L Alkaline Phosphatase 66 40-136 U/L C-Reactive Protein High Sensitivity 0.20 0.00-0.50 MG/DL Total Protein 7.2 6.4-8.2 GM/DL Albumin 3.7 3.2-4.5 GM/DL My Orders Orders - CATRACHO ELI Ua Culture If Indicated (07/22/21 10:41) Urine Bedside (07/22/21 10:41) Cbc With Automated Diff (07/22/21 11:06) Protime With Inr (07/22/21 11:06) Comprehensive Metabolic Panel (07/22/21 11:06) Hs C Reactive Protein (07/22/21 11:06) Fibrinogen (07/22/21 11:06) Us Ob Preg Late(14-40wks)76086 (07/22/21 11:06) Ed Iv/Invasive Line Start (07/22/21 11:06) Manual Differential (07/22/21 11:08) Syphilis Antibody Screen (07/22/21 11:25) Azithromycin Tablet (Zithromax Tablet) (07/22/21 12:30) Ceftriaxone 1 Gm Pre-Mix (Rocephin 1 Gm (07/22/21 12:30) Neis Amari Dna Urine Test (07/22/21 12:20) Chlamydia Trachomatis Urine (07/22/21 12:20) Vital Signs/I&O 07/22/21 10:33 Pulse 88 Resp 16 B/P (MAP) 143/101 (115) Pulse Ox 99 O2 Delivery Room Air Blood Pressure Mean: 115 Progress Progress Note : Time: 11:22 Progress Note Based on fundal position estimated around 20 weeks. We will get an ultrasound. After the ultrasound we will consult OB and discuss appropriate plans at that time. We will get some labs including a fibrinogen, liver enzymes and PT/INR. She does not have any edema but she does have a borderline hypertension. Diagnostic Imaging Diagonstic Imaging: Ultrasound Plain Films/CT/US/NM/MRI: pelvis Comments [facility] [place] NAME: IGNACIO GANDHI [facility] REC#: [id number] PT STATUS: REG ER : 1985 PHYSICIAN: CATRACHO ELI MD ADMIT DATE: 07/22/21/ER Draft Date of Exam:07/22/21 US OB PREG LATE(14-40WKS)[id number] INDICATION: Cramping during TECHNIQUE: Multiple real-time grayscale images were obtained over the gravid uterus. COMPARISON: None FINDINGS: The placenta is anteriorly positioned and there is no previa. The inferior margin of the placenta is 3.2 cm from the internal cervical os. No features of placental abruption. The fetus is in breech presentation. Cervix measures approximately 4.2 cm in length. BISI is normal at 15.5 cm Biometrical measurements are as follows: Biparietal 4.60 cm, age 20 weeks 0 days. Head circumference 18.51 cm, age 21 weeks 0 days. Abdominal circumference 15.66 cm, age 20 weeks 6 days. Femur length 3.49 cm, age 21 weeks 1 days. Sonographic estimate age: 20 weeks 6 days. Sonographic estimated date of delivery: 12/03/2021. Estimated Weight: 382 gm (+/- 56 gm). LMP percentile: N/A%. heart rate: 150 beats per minute. number: 1 of 1. IMPRESSION: 1. Single live intrauterine . 2. Normal BISI. 3. No sonographic features of placental abruption. 4. Cervix measures 4.2 cm. Dictated on workstation # [id number] Dict: 07/22/21 1200 Trans: 07/22/21 1206 [facility] [id number] Interpreted by: ETHAN TUCKER MD Electronically signed by: Reviewed: Reviewed by Me Consults : Consulting Physician: BRIANNA MAHONEY MD Consults Notes Discussed the case with [facility] obstetrics Dr. Mahoney and she agrees with the plan to treat the patient with Flagyl, Rocephin and azithromycin and test for STDs. The patient has an appointment next week to establish care for obstetrics at [facility]. She does not recommend any monitoring at this time Departure Impression Primary Impression: Trichomonal cervicitis Additional Impression: Qualified Codes: Z3A.20 - 20 weeks gestation of Disposition: HOME, SELF-CARE Condition: Stable Departure-Patient Inst. Decision time for Depature: 12:15 Referrals: [facility] Primary Care Physician Patient Instructions: - The Fourth Month, Trichomoniasis (DC) Add. 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 Probiotics 1 capsule twice a day is helpful to reduce the incidence of diarrhea from being on antibiotics. vitamins 1 tablet daily. Keep your follow-up appointment with photogeologist. All discharge instructions reviewed with patient and/or family. Voiced understanding. Scripts Vit W-Ca,Fe,FA(<1 mg) ( Formula) 28 Mg Iron-800 Mcg Tablet 1 EACH PO DAILY for 30 Days, #30 TAB 0 Refills Prov: CATRACHO ELI 07/22/21 Metronidazole (Metronidazole) 500 Mg Tablet 500 MG PO BID for 7 Days, #14 TAB 0 Refills Prov: CATRACHO ELI 07/22/21 Work/School Note: Work Release Form Date Seen in the Emergency Department: July 22, 2021 Return to Work: July 22, 2021 Restrictions: No Restrictions Copy Copies To 1: LYNDSAY GARCIA TITUS J July 22, 2021 11:22
[2021-07-22 11:24] LABS: ALBUMIN 3.7 GM/DL (3.2-4.5); POTASSIUM 4.2 MMOL/L (3.6-5.0)
[2021-07-22 11:26] LABS: CALCIUM 9.6 MG/DL (8.5-10.1)
[2021-07-22 11:27] LABS: TOTAL PROTEIN 7.2 GM/DL (6.4-8.2)
[2021-07-22 11:29] LABS: BILIRUBIN,TOTAL 0.2 MG/DL (0.1-1.0)
[2021-07-22 11:31] LABS: CREATININE SERUM 0.69 MG/DL (0.60-1.30)
[2021-07-22 11:39] LABS: BAND NEUTROPHILS 0 %; BASOPHILS % (MANUAL) 0 %; EOSINOPHILS % (MANUAL) 2 %; LYMPHOCYTES % (MANUAL) 13 %; MONOCYTES % (MANUAL) 12 %; NEUTROPHILS % (MANUAL) 73 %; RBC MORPH NORMAL
--- NOTE | 2021-07-22 12:07 | Diagnostic Imaging Report ---
INDICATION: Cramping during TECHNIQUE: Multiple real-time grayscale images were obtained over the gravid uterus. COMPARISON: None FINDINGS: The placenta is anteriorly positioned and there is no previa. The inferior margin of the placenta is 3.2 cm from the internal cervical os. No features of placental abruption. The fetus is in breech presentation. Cervix measures approximately 4.2 cm in length. BISI is normal at 15.5 cm Biometrical measurements are as follows: Biparietal 4.60 cm, age 20 weeks 0 days. Head circumference 18.51 cm, age 21 weeks 0 days. Abdominal circumference 15.66 cm, age 20 weeks 6 days. Femur length 3.49 cm, age 21 weeks 1 days. Sonographic estimate age: 20 weeks 6 days. Sonographic estimated date of delivery: 12/03/2021. Estimated Weight: 382 gm (+/- 56 gm). LMP percentile: N/A%. heart rate: 150 beats per minute. number: 1 of 1. IMPRESSION: 1. Single live intrauterine . 2. Normal BISI. 3. No sonographic features of placental abruption. 4. Cervix measures 4.2 cm. Dictated by: Dictated on workstation # [id number]
[2021-07-22] MEDS ORDERED: AZITHROMYCIN 250 MG TAB (ZITHROMAX) PO ONE (12:30)
[2021-07-22] MEDS ORDERED: cefTRIAXone 1 GM PRE-MIX 50 ML IV ONE (12:30)
[2021-07-22] MEDS ORDERED: PREN-8 PO (12:35)
[2021-07-22] MEDS ORDERED: METR-145 PO (12:35)
[2021-07-22 13:17] VITALS: BP 127/84
== END 2021-07-22 13:16 | disposition home or self-care (01) ==
LOC: EDUNIT# 10:33 → ER 10:34
DX: O98.312 Other infections with a predominantly sexual mode of transmission complicating pregnancy, second trimester (principal); A59.09 Other urogenital trichomoniasis; O99.332 Smoking (tobacco) complicating pregnancy, second trimester; F17.210 Nicotine dependence, cigarettes, uncomplicated; Z87.59 Personal history of other complications of pregnancy, childbirth and the puerperium; Z79.899 Other long term (current) drug therapy; Z3A.20 20 weeks gestation of pregnancy
CPT/HCPCS: 36415; 76805; 80053; 81000; 84703; 85007; 85027; 85384; 85610; 86141; 86780; 87491; 87591

== ENCOUNTER 2021-09-05 19:54 | Outpatient (CLI) | payer MEDICAID ==
[~2021-09-05] VITALS: Ht 157 cm; Wt 82.0 kg
[~2021-09-05 19:54] MED LIST changes: +METR-145 PO; +PREN-8 PO
[2021-09-05 20:15] VITALS: BP 126/74
[2021-09-05 20:19] VITALS: BP 126/74
[2021-09-05 20:31] LABS: BILIRUBIN,URINE NEGATIVE (NEGATIVE); CLARITY,URINE CLEAR; COLOR,URINE YELLOW; GLUCOSE, URINE (UA) NEGATIVE (NEGATIVE); KETONES,URINE NEGATIVE (NEGATIVE); LEUKOCYTE ESTERASE ,URINE NEGATIVE (NEGATIVE); NITRITE,URINE NEGATIVE (NEGATIVE); PROTEIN,URINE NEGATIVE (NEGATIVE)
[2021-09-05 21:06] LABS: BACTERIA,URINE TRACE /HPF; RBC,URINE 0-2 /HPF; SQUAMOUS EPITHELIAL CELL,UR 0-2 /HPF; WBC,URINE RARE /HPF
--- NOTE | 2021-09-08 08:11 | Physician Query-Final Dx ---
CARLOS,09/08/21 0811: Clinic Account Progress/Dx Physician Query: Please give diagnosis Please include # weeks gestation Date of Service Sep 05, 2021 at 19:54 LYNDSAY GARCIA DO 09/08/212000: Clinic Account Progress/Dx DIAGNOSIS: Diagnosis 27 week GA pelvic pain CARLOS,MarSep 08, 2021 08:11 LYNDSAY GARCIA DO Sep 08, 2021 20:01
== END 2021-09-05 21:14 ==
LOC: LDRP 19:54 → WSo 19:54
PROVIDERS: ATTEND Family Medicine
DX: O26.892 Other specified pregnancy related conditions, second trimester (principal); Z3A.27 27 weeks gestation of pregnancy
CPT/HCPCS: 81000; 99213

== ENCOUNTER 2021-10-28 11:46 | Outpatient (CLI) | payer MEDICAID ==
[~2021-10-28] VITALS: Ht 157.5 cm; Wt 91.0 kg
[2021-10-28 12:15] VITALS: BP 125/80
[2021-10-28 12:30] LABS: BILIRUBIN,URINE NEGATIVE (NEGATIVE); CLARITY,URINE CLEAR; COLOR,URINE YELLOW; GLUCOSE, URINE (UA) NEGATIVE (NEGATIVE); KETONES,URINE NEGATIVE (NEGATIVE); LEUKOCYTE ESTERASE ,URINE NEGATIVE (NEGATIVE); NITRITE,URINE NEGATIVE (NEGATIVE); PH,URINE 6.5 (5-9); PROTEIN,URINE NEGATIVE (NEGATIVE)
[2021-10-28 12:38] LABS: BACTERIA,URINE FEW /HPF
[2021-10-28 12:39] LABS: AMORPHOUS SEDIMENT,UR FEW AMOR URATES /LPF
[2021-10-28 13:15] VITALS: BP 125/80
[2021-10-28 13:16] VITALS: BP 129/76
--- NOTE | 2021-10-29 08:45 | Physician Query-Final Dx ---
Clinic Account Progress/Dx Physician Query: Please give diagnosis Please include # weeks gestation Date of Service Oct 28, 2021 at 11:46 CARLOS,MarOct 29, 2021 08:45
== END 2021-10-28 14:24 | disposition home or self-care (01) ==
LOC: WSo 11:46 → LDRP 11:49 → WSo 14:24
PROVIDERS: ATTEND Family Medicine
DX: O62.9 Abnormality of forces of labor, unspecified (principal); Z3A.00 Weeks of gestation of pregnancy not specified
CPT/HCPCS: 81000; 87088

== ENCOUNTER 2021-11-12 19:45 | Outpatient (CLI) | payer MEDICAID ==
[~2021-11-12] VITALS: Ht 157.5 cm; Wt 96.2 kg
[2021-11-12 20:00] VITALS: BP 145/76
[2021-11-12 20:44] VITALS: BP 145/76
[2021-11-12 20:51] VITALS: BP 126/71
--- NOTE | 2021-11-13 08:57 | Physician Query-Final Dx ---
CARLOS,11/13/21 0857: Clinic Account Progress/Dx Physician Query: Please give diagnosis Please include # weeks gestation Date of Service Nov 12, 2021 at 19:45 BRIANNA MAHONEY MD 11/14/21 1055: Clinic Account Progress/Dx DIAGNOSIS: Diagnosis Third trimeter 38 week gestation Abdominal pain in CARLOS,MarNov 13, 2021 08:57 BRIANNA MAHONEY MD Nov 14, 2021 10:55
== END 2021-11-12 20:38 ==
LOC: LDRP 19:45 → WSo 19:45
PROVIDERS: ATTEND Family Medicine
DX: O62.9 Abnormality of forces of labor, unspecified (principal); Z3A.38 38 weeks gestation of pregnancy
CPT/HCPCS: 99212

== ENCOUNTER 2021-11-18 12:12 | Outpatient (CLI) | payer MEDICAID ==
[~2021-11-18] VITALS: Ht 157.5 cm; Wt 95.8 kg
[2021-11-18 12:47] VITALS: BP 136/89
[2021-11-18 12:48] VITALS: BP 136/89
[2021-11-18 12:53] LABS: BASOPHILS % (AUTO) 0 % (0-10); EOSINOPHILS # (AUTO) 0.2 10^3/uL (0.0-0.3); EOSINOPHILS % (AUTO) 2 % (0-10); HEMATOCRIT 39 % (35-52); HEMOGLOBIN 13.2 g/dL (11.5-16.0); LYMPHOCYTES % (AUTO) 17 % (12-44); MEAN CORPUSCULAR HEMOGLOBIN 31 pg (25-34); MEAN CORPUSCULAR HGB CONC 34 g/dL (32-36); MEAN CORPUSCULAR VOLUME 92 fL (80-99); MEAN PLATELET VOLUME 9.7 fL (9.0-12.2); MONOCYTES # (AUTO) 0.9 10^3/uL (0.0-1.0); MONOCYTES % (AUTO) 8 % (0-12); NEUTROPHILS # (AUTO) 8.7 10^3/uL (1.8-7.8); NEUTROPHILS % (AUTO) 73 % (42-75); PLATELET COUNT 248 10^3/uL (130-400); WHITE BLOOD COUNT 11.9 10^3/uL (4.3-11.0)
[2021-11-18 13:04] LABS: ALBUMIN 3.4 GM/DL (3.2-4.5)
[2021-11-18 13:05] LABS: POTASSIUM 4.1 MMOL/L (3.6-5.0)
[2021-11-18 13:06] LABS: CALCIUM 8.8 MG/DL (8.5-10.1)
[2021-11-18 13:07] LABS: TOTAL PROTEIN 6.8 GM/DL (6.4-8.2)
[2021-11-18 13:09] LABS: BILIRUBIN,TOTAL 0.3 MG/DL (0.1-1.0)
[2021-11-18 13:11] LABS: CREATININE SERUM 0.63 MG/DL (0.60-1.30)
[2021-11-18 13:14] LABS: URIC ACID 4.9 MG/DL (2.6-7.2)
--- NOTE | 2021-11-19 08:03 | Physician Query-Final Dx ---
,11/19/21 0803: Clinic Account Progress/Dx Physician Query: Please give diagnosis Please include # weeks gestation Date of Service Nov 18, 2021 at 12:12 NEW SILVA MD 11/19/21 0817: Clinic Account Progress/Dx DIAGNOSIS: Diagnosis Term intrauterine 38 weeks gestation Elevated blood pressure in with negative preeclampsia labs and normal repeat blood pressure check ,MarNov 19, 2021 08:03 NEW SILVA MD Nov 19, 2021 08:17
== END 2021-11-18 14:25 | disposition home or self-care (01) ==
LOC: WSo 12:12 → LDRP 12:14 → WSo 14:25
PROVIDERS: ATTEND Family Medicine
DX: O13.3 Gestational [pregnancy-induced] hypertension without significant proteinuria, third trimester (principal); Z3A.38 38 weeks gestation of pregnancy
CPT/HCPCS: 36415; 80053; 82570; 83615; 84156; 84550; 85025; 99212

== ENCOUNTER 2021-11-26 05:55 | Inpatient (IN) | payer MEDICAID ==
[2021-11-26] VITALS (71 sets, daily range): BP systolic 69–135; BP diastolic 38–84
[~2021-11-26] VITALS: Ht 157.5 cm; Wt 96.4 kg
[2021-11-26] MEDS ORDERED: MINERAL OIL 30 ML UDC TOP PRN (06:15)
[2021-11-26 06:20] LABS: BASOPHILS % (AUTO) 0 % (0-10); EOSINOPHILS # (AUTO) 0.2 10^3/uL (0.0-0.3); EOSINOPHILS % (AUTO) 2 % (0-10); HEMATOCRIT 39 % (35-52); HEMOGLOBIN 12.9 g/dL (11.5-16.0); LYMPHOCYTES # (AUTO) 2.3 10^3/uL (1.0-4.0); LYMPHOCYTES % (AUTO) 21 % (12-44); MEAN CORPUSCULAR HEMOGLOBIN 31 pg (25-34); MEAN CORPUSCULAR HGB CONC 33 g/dL (32-36); MEAN CORPUSCULAR VOLUME 93 fL (80-99); MEAN PLATELET VOLUME 10.1 fL (9.0-12.2); MONOCYTES % (AUTO) 9 % (0-12); NEUTROPHILS # (AUTO) 7.6 10^3/uL (1.8-7.8); NEUTROPHILS % (AUTO) 68 % (42-75); PLATELET COUNT 265 10^3/uL (130-400); WHITE BLOOD COUNT 11.1 10^3/uL (4.3-11.0)
--- NOTE | 2021-11-26 06:22 | History & Physical-OB ---
OB - Chief Complaint & HPI Date/Time Date of Admission: Date of Admission: Nov 26, 2021 at 05:55 Date seen by a Provider: Nov 26, 2021 Time Seen by a Provider: 08:30 Chief Complaint/History OB-Reason for Admission/Chief: Induction of Labor Hx : 5 Hx Para: 3013 Expected Date of Delivery: Dec 03, 2021 Gestational Age in Weeks: 39 Gestational Age in Days: 0 Indication for induction: maternal discomfort History of Labs A+, antibody neg, RNI. HIV/HepB/RPR NR. GC/chlamydia neg. Trichomonas treated in early second trimester Other at 39w0d, requested induction. History of substance use early in , in remission. Allergies and Home Medications Allergies Coded Allergies: No Known Drug Allergies (Unverified , 01/19/20) Patient Home Medication List Home Medication List Reviewed: Yes Doxylamine Succinate (Unisom) 25 Mg Tablet, 25 MG PO DAILY, (Reported) Entered as Reported by: SHAHEEN CLEMONS on 11/26/21 0658 Last Action: New Order Vit W-Ca,Fe,FA(<1 mg) ( Formula) 28 Mg Iron-800 Mcg Tablet, 1 EACH PO DAILY Prescribed by: CATRACHO ELI on 07/22/21 1235 Last Action: Reviewed Discontinued Medications Vit/Iron Fumarate/FA ( Vitamins Tablet) 1 Each Tablet, 1 EACH PO DAILY, (Reported) Entered as Reported by: ISH MOYA on 01/19/20 1606 Last Action: Discontinued OB - History Hx of Present Ultrasounds: Normal mid trimester US Obstetrical Complications: None Information Induced Hypertension: Yes (previous ) Maternal Gestational Diabetes: No Hemorrhage: No Obstetrical History Hx : 5 Hx Para: 3 Hx # Term Pregnancies: 3 Hx # Pregnancies: 0 Number of Living Children: 3 Hx Termination: No Hx Total # of Abortions (Spona: 1 Hx Multiple Gestation: No Hx Ectopic : Yes Hx Stillbirth: No Hx Complication: No Hx Induced Hypertens: Yes Hx Maternal Gestational Diabet: No Hx Hemorrhage: No Delivery History Hx Dystocia: No Hx Forceps Assisted Delivery: No Hx Vacuum Extraction Assisted: No Hx Placenta Abnormality: No Hx Distress: No Hx Large For Gestational Age I: No Hx Small for Gestational Age I: No Hx Section: No Hx Vaginal Delivery Post C-Sec: No Hx Blood Disorders: No Adverse Rxn to Tranfusion: No Patient Past Medical History PMHx: Substance abuse SurgHx: Ectopic Social History/Family History Alcohol Use: Denies Use Recreational Drug Use: No (history of methamphetamine and THC, last use reported 05/2021) Smoking Cessation: Current every day smoker 2nd Hand Smoke Exposure: No Immunizations First/Initial COVID19 Vaccine: 04/26/2020 Hepatitis A: No Hepatitis B: No Tetanus Booster (TDap): Less than 5yrs (09/29/2021) Rubella: not immune RPR/VDRL: Negative GBS Status: Positive HBsAG: Negative OB - Admission Exam Physical Exam HEENT: NCAT Abdomen: Non tender Extremities: Normal Cervical Dilatation: 3cm Effacement: 0% Station: -3 Membranes: Intact Heart Rate: 120's Accelerations: Accelerations Present Decelerations: No Decelerations Short Term Variability: Present 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 Variability: Average (6-25) Contractions on Admission: 6-10 Minutes Apart Arango Scoring Tool (Modified) Dilation (cm): 3-4cm (2) Effacement (%): 0-30% (0) Descent/Station: -3 (0) Cervix Consistency: Soft (2) Cervix Position: Middle/Mid-Position (1) Add 1 point for: Each previous vaginal delivery (1) (3) Arango Score: 8 Labs Laboratory Tests Test 11/26/21 06:10 Range/Units OB - Assessment/Plan/Diagnosis Assessment Admission Dx Term intrauterine at 39 weeks gestation Induction of labor planned History of methamphetamine use in , in remission Rubella non-immune GBS positive Admission Status: Inpatient Order (span 2 midnights) Reason for Inpatient Admission: Labor, delivery and course Plan Plan: Induction Induction Method: per Pitocin Protocol Other Plan Ampicillin NEW SILVA MD Nov 26, 2021 06:22
[2021-11-26] MEDS ORDERED: DOXY25TA56 PO (06:58)
[2021-11-26] MEDS ORDERED: AMPICILLIN FOR IV USE 2,000 MG in NS (IVPB) 50 ML IV NR (07:00)
[2021-11-26] MEDS: D5 LR IV SOLUTION 1,000 ML IV SCH ×2 (07:29→15:16)
[2021-11-26 07:54] LABS: AMPHETAMINE SCREEN, URINE NEGATIVE (NEGATIVE); BARBITURATE SCREEN URINE NEGATIVE (NEGATIVE); BENZODIAZEPINES SCREEN URINE NEGATIVE (NEGATIVE); CANNABINOID SCREEN, URINE NEGATIVE (NEGATIVE); COCAINE SCREEN URINE NEGATIVE (NEGATIVE); METHADONE STAT NEGATIVE (NEGATIVE); OPIATE SCREEN URINE NEGATIVE (NEGATIVE); OXYCODONE STAT NEGATIVE (NEGATIVE); PROPOXYPHENE STAT NEGATIVE (NEGATIVE); TRICYCLIC ANTIDEPRESSANTS SCRE NEGATIVE (NEGATIVE)
[2021-11-26] MEDS: OXYTOCIN PRE-MIX DRIP 500 ML IV SCH ×2 (08:08→19:36)
[2021-11-26] MEDS ORDERED: LACTATED RINGERS 1,000 ML IV SCH ×2 (09:00→11:45)
[2021-11-26] MEDS ORDERED: fentaNYL 2 mcg/ml BUPIVA 0.125 100 ML ONE (09:17)
[2021-11-26] MEDS ORDERED: fentaNYL INJ 100 MCG/2 ML AMP ONE (09:49)
[2021-11-26] MEDS ORDERED: LIDOCAINE PF 2% 5 ML (XYLOCAINE) VIAL ONE (09:49)
[2021-11-26] MEDS: fentaNYL 2 mcg/ml BUPIVA 0.125 100 ML EPI SCH ×2 (10:27→17:34)
[2021-11-26] MEDS: AMPICILLIN FOR IV USE 1,000 MG in NS (IVPB) 50 ML IV SCH ×3 (11:15→18:48)
[2021-11-26] MEDS ORDERED: ONDANSETRON 4 MG/2 ML (SDV) Z0FRAN IV PRN (11:45)
[2021-11-26] MEDS ORDERED: diphenhydrAMINE 50 MG/ML INJ (BENADRYL) IV PRN (11:45)
[2021-11-26] MEDS ORDERED: NALOXONE 0.4 MG/ML 1 ML (NARCAN) VIAL IV PRN ×2 (11:45)
[2021-11-26] MEDS ORDERED: METOCLOPRAMIDE INJ 10 MG/2 ML (REGLAN) IV PRN (11:45)
[2021-11-26] MEDS ORDERED: CATHETER FLUSH 10 ML SYR IV SCH ×2 (14:00→22:00)
--- NOTE | 2021-11-26 16:09 | Labor Progress Note ---
Labor Progress Note Labor Progress Note Date Seen by Provider: Nov 26, 2021 Time Seen by Provider: 15:30 Subjective: Pt denies complaints, feeling comfortable with epidural. Objective: Cervical exam: 4.5/50/-3 Consistency: soft Position: posterior Presentation: vertex heart tones: 150 beats per minute, moderate variability, reactive; category I tracing Tocometer: 4 ctx/10 minutes Assessment/Plan: Fallon Small is a 36 /Para 5 / 3,Gestational Age (wks)39 here for induction of labor. AROM done at time of exam with clear fluid. CEFM/TOCO Continue pitocin Anesthesia: epidural Anticipate vaginal delivery. Vitals - Labs Vital Signs - I&O Vital Signs Date Time Temp Pulse Resp B/P (MAP) Pulse Ox O2 Delivery O2 Flow Rate FiO2 11/26/21 10:15 78 18 91/50 (64) 98 Room Air 11/26/21 10:11 69 18 104/63 (77) 98 Room Air 11/26/21 10:08 73 18 108/62 (77) 98 Room Air 11/26/21 10:06 69 18 81/51 (61) 98 Room Air 11/26/21 10:01 78 18 118/72 (87) 98 Room Air 11/26/21 09:49 76 18 118/71 (87) Room Air 11/26/21 09:32 80 18 114/64 (81) Room Air 11/26/21 09:16 36.8 78 18 118/76 (90) Room Air 11/26/21 09:02 79 18 116/74 (88) Room Air 11/26/21 08:46 77 18 125/77 (93) Room Air 11/26/21 08:16 81 18 122/72 (89) Room Air 11/26/21 07:32 36.2 77 18 112/67 (82) Room Air 11/26/21 07:30 36.4 94 18 98 Room Air 11/26/21 06:06 36.4 94 18 123/84 (97) 98 Room Air Labs Laboratory Tests 11/26/21 06:00: Urine Opiates Screen NEGATIVE, Urine Oxycodone Screen NEGATIVE, Urine Methadone Screen NEGATIVE, Urine Propoxyphene Screen NEGATIVE, Urine Barbiturates Screen NEGATIVE, Ur Tricyclic Antidepressants Screen NEGATIVE, Urine Phencyclidine Screen NEGATIVE, Urine Amphetamines Screen NEGATIVE, Urine Methamphetamines Screen NEGATIVE, Urine Benzodiazepines Screen NEGATIVE, Urine Cocaine Screen NEGATIVE, Urine Cannabinoids Screen NEGATIVE 11/26/21 06:10: White Blood Count 11.1H, Red Blood Count 4.17, Hemoglobin 12.9, Hematocrit 39, Mean Corpuscular Volume 93, Mean Corpuscular Hemoglobin 31, Mean Corpuscular Hemoglobin Concent 33, Red Cell Distribution Width 12.9, Platelet Count 265, Mean Platelet Volume 10.1, Immature Granulocyte % (Auto) 1, Neutrophils (%) (Auto) 68, Lymphocytes (%) (Auto) 21, Monocytes (%) (Auto) 9, Eosinophils (%) (Auto) 2, Basophils (%) (Auto) 0, Neutrophils # (Auto) 7.6, Lymphocytes # (Auto) 2.3, Monocytes # (Auto) 1.0, Eosinophils # (Auto) 0.2, Basophils # (Auto) 0.0, Immature Granulocyte # (Auto) 0.1 NEW SILVA MD Nov 26, 2021 16:09
--- NOTE | 2021-11-26 19:44 | OB Labor & Delivery Record ---
Vag Delivery Note Vag Delivery Note Date of Delivery: 11/26/21 Preoperative Diagnosis: Fallon Small is a (36 /Para 5 / 3,Gestational Age (wks)39with 0 days Postoperative Diagnosis: Same Surgeon: NEW SILVA Anesthesia: Epidural Delivery Type: Findings: Viable female infant, apgars [], weight 7#3 Lacerations: vaginal wall abrasions Intact placenta with 3 vessel cord. No nuchal cord, body cord. Shoulder dystocia- see Dystocia section. Estimated Blood Loss: 250 ml Complications: None Condition: Stable Description of Procedure: The patient is a 36 year old female who presented for induction of labor. She was admitted and informed consent was obtained. Her labor course was unremarkalb.e She progressed to complete dilatation and began to push. She was then set up for delivery. The infant's head was delivered atraumatically in the NANCY position. The head was noted to turtle and the anterior shoulder did not immediately deliver, patient was placed in McRobert's position and anterior shoulder still did not deliver, suprapubic pressure from maternal left and anterior shoulder shifted slightly but did not deliver, I used my right hand to rotate the anterior shoulder forward and the anterior shoulder delivered, posterior shoulder and remainder of the infant's body were then delivered without difficulty. Upon delivery, the was placed on maternal abdomen. The cord was doubly clamped and cut and the infant was handed off to the pediatric staff and a cord blood gas was obtained. An intact placenta with 3- vessel cord delivered via Mynor and there was found to be minimal bleeding.~ Vigorous fundal massage was performed and the fundus was found to be firm. IV oxytocin was given. Examination of the vagina and perineum revealed vaginal wall abrasions not requiring repair. Following the delivery, sponge, instrument and needle counts were correct. Mom and baby were both in stable condition in the labor suite. Vitals - Labs Vital Signs - I&O Vital Signs Date Time Temp Pulse Resp B/P (MAP) Pulse Ox O2 Delivery O2 Flow Rate FiO2 11/26/21 16:30 36.8 77 18 133/69 (90) Room Air 11/26/21 16:15 77 18 116/75 (89) Room Air 11/26/21 16:00 78 18 118/74 (89) Room Air 11/26/21 15:45 78 18 124/75 (91) Room Air 11/26/21 15:30 77 18 125/65 (85) 98 Room Air 11/26/21 15:15 75 18 113/66 (82) Room Air 11/26/21 15:00 36.4 75 18 120/66 (84) Room Air 11/26/21 14:45 86 18 117/67 (84) Room Air 11/26/21 14:30 82 18 116/71 (86) Room Air 11/26/21 14:15 36.5 69 18 121/72 (88) Room Air 11/26/21 14:00 74 18 105/60 (75) Room Air 11/26/21 13:45 70 18 109/60 (76) Room Air 11/26/21 13:30 70 18 120/70 (87) 99 Room Air 11/26/21 13:15 75 18 119/68 (85) 98 Room Air 11/26/21 13:00 79 18 117/69 (85) 99 Room Air 11/26/21 12:46 74 18 122/70 (87) 98 Room Air 11/26/21 12:30 71 18 110/71 (84) 98 Room Air 11/26/21 12:14 66 18 109/67 (81) 98 Room Air 11/26/21 12:00 72 18 106/61 (76) 99 Room Air 11/26/21 11:44 70 18 109/60 (76) 99 Room Air 11/26/21 11:30 69 18 111/60 (77) 99 Room Air 11/26/21 11:15 36.4 70 18 116/53 (74) 97 Room Air 11/26/21 11:10 71 18 97/55 (69) 98 Room Air 11/26/21 11:03 81 18 105/51 (69) 98 Room Air 11/26/21 11:00 77 18 114/63 (80) Room Air 11/26/21 10:57 79 18 102/59 (73) 96 Room Air 11/26/21 10:54 77 18 104/55 (71) 100 Room Air 11/26/21 10:51 77 18 102/58 (73) Room Air 11/26/21 10:48 77 18 95/54 (68) 100 Room Air 11/26/21 10:45 75 18 97/58 (71) 100 Room Air 11/26/21 10:42 80 18 96/55 (69) 100 Room Air 11/26/21 10:39 75 18 94/53 (67) 100 Room Air 11/26/21 10:36 69 18 95/50 (65) Room Air 11/26/21 10:33 65 18 69/38 (48) 98 Room Air 11/26/21 10:32 64 18 81/45 (57) Room Air 11/26/21 10:30 65 18 89/55 (66) Room Air 11/26/21 10:26 70 18 95/52 (66) 97 Room Air 11/26/21 10:23 73 18 100/57 (71) 98 Room Air 11/26/21 10:20 79 18 91/54 (66) Room Air 11/26/21 10:17 68 18 90/55 (67) 99 Room Air 11/26/21 10:15 78 18 91/50 (64) 98 Room Air 11/26/21 10:11 69 18 104/63 (77) 98 Room Air 11/26/21 10:08 73 18 108/62 (77) 98 Room Air 11/26/21 10:06 69 18 81/51 (61) 98 Room Air 11/26/21 10:01 78 18 118/72 (87) 98 Room Air 11/26/21 09:49 76 18 118/71 (87) Room Air 11/26/21 09:32 80 18 114/64 (81) Room Air 11/26/21 09:16 36.8 78 18 118/76 (90) Room Air 11/26/21 09:02 79 18 116/74 (88) Room Air 11/26/21 08:46 77 18 125/77 (93) Room Air 11/26/21 08:16 81 18 122/72 (89) Room Air 11/26/21 07:32 36.2 77 18 112/67 (82) Room Air 11/26/21 07:30 36.4 94 18 98 Room Air 11/26/21 06:06 36.4 94 18 123/84 (97) 98 Room Air Labs Laboratory Tests 11/26/21 06:00: Urine Opiates Screen NEGATIVE, Urine Oxycodone Screen NEGATIVE, Urine Methadone Screen NEGATIVE, Urine Propoxyphene Screen NEGATIVE, Urine Barbiturates Screen NEGATIVE, Ur Tricyclic Antidepressants Screen NEGATIVE, Urine Phencyclidine Screen NEGATIVE, Urine Amphetamines Screen NEGATIVE, Urine Methamphetamines Screen NEGATIVE, Urine Benzodiazepines Screen NEGATIVE, Urine Cocaine Screen NEGATIVE, Urine Cannabinoids Screen NEGATIVE 11/26/21 06:10: White Blood Count 11.1H, Red Blood Count 4.17, Hemoglobin 12.9, Hematocrit 39, Mean Corpuscular Volume 93, Mean Corpuscular Hemoglobin 31, Mean Corpuscular Hemoglobin Concent 33, Red Cell Distribution Width 12.9, Platelet Count 265, Mean Platelet Volume 10.1, Immature Granulocyte % (Auto) 1, Neutrophils (%) (Auto) 68, Lymphocytes (%) (Auto) 21, Monocytes (%) (Auto) 9, Eosinophils (%) (Auto) 2, Basophils (%) (Auto) 0, Neutrophils # (Auto) 7.6, Lymphocytes # (Auto) 2.3, Monocytes # (Auto) 1.0, Eosinophils # (Auto) 0.2, Basophils # (Auto) 0.0, Immature Granulocyte # (Auto) 0.1 Shoulder Dystocia Note Shoulder Dystocia Start Time of Delivery of HEAD: 19:09 Time shoulder dystocia called: 19:09 Time of delivery of BODY: 19:10 Positional Maneuvers Mimi, Suprapubic: Left Rotational Maneuvers NEW Arenas II, MD Nov 26, 2021 19:44
[2021-11-26] MEDS ORDERED: MEASLES,MUMPS,RUBELLA 1 EA INJ SQ ONE (19:45)
[2021-11-26] MEDS ORDERED: OXYTOCIN PRE-MIX DRIP 500 ML IV SCH (19:45)
[2021-11-26] MEDS ORDERED: WITCH HAZEL(TUCKS) 40 EA JAR TOP PRN (19:45)
[2021-11-26] MEDS ORDERED: BENZOCAINE/MENTHOL (DERMOPLAST) 56 ML CAN TP PRN (19:45)
[2021-11-26] MEDS ORDERED: IBUPROFEN 600 MG (MOTRIN) TAB PO ONE (20:57)
[2021-11-26] MEDS: IBUPROFEN 600 MG (MOTRIN) TAB PO PRN (21:17)
[2021-11-27] VITALS (7 sets, daily range): BP systolic 120–140; BP diastolic 57–77
[2021-11-27] MEDS: IBUPROFEN 600 MG (MOTRIN) TAB PO PRN ×4 (03:10→21:18)
[2021-11-27 06:23] LABS: BASOPHILS # (AUTO) 0.1 10^3/uL (0.0-0.1); BASOPHILS % (AUTO) 0 % (0-10); EOSINOPHILS # (AUTO) 0.2 10^3/uL (0.0-0.3); EOSINOPHILS % (AUTO) 2 % (0-10); HEMATOCRIT 34 % (35-52); HEMOGLOBIN 11.4 g/dL (11.5-16.0); LYMPHOCYTES # (AUTO) 2.5 10^3/uL (1.0-4.0); LYMPHOCYTES % (AUTO) 16 % (12-44); MEAN CORPUSCULAR HEMOGLOBIN 32 pg (25-34); MEAN CORPUSCULAR HGB CONC 34 g/dL (32-36); MEAN CORPUSCULAR VOLUME 94 fL (80-99); MEAN PLATELET VOLUME 10.4 fL (9.0-12.2); MONOCYTES # (AUTO) 1.3 10^3/uL (0.0-1.0); MONOCYTES % (AUTO) 8 % (0-12); NEUTROPHILS # (AUTO) 11.1 10^3/uL (1.8-7.8); NEUTROPHILS % (AUTO) 73 % (42-75); PLATELET COUNT 228 10^3/uL (130-400); WHITE BLOOD COUNT 15.3 10^3/uL (4.3-11.0)
--- NOTE | 2021-11-27 07:55 | Anesthesia-Regional Post-Op ---
Regional Patient Condition Mental Status: Alert, Oriented x3 Circulation: Same as Pre-Op Headache: Absent Sensation: Full Recovery Motor Block: Absent Post Op Complications Complications None Follow Up Care/Instructions Patient Instructions None needed. Anesthesia/Patient Condition Patient is doing well, no complaints, stable vital signs, no apparent adverse anesthesia problems. No complications reported per nursing. ABI FINLEY CRNA Nov 27, 2021 07:55
[2021-11-27] MEDS: DOCUSATE SODIUM 100 MG (COLACE) CAP PO SCH ×2 (09:03→21:18)
--- NOTE | 2021-11-27 10:55 | Progress Note ---
Subjective Subjective/Events-last exam PPD#1, doing well, denies concerns. Denies SOA, dizziness, chest pain. Bleeding minimal. Bottlefeeding. Objective Exam Last Set of Vital Signs Vital Signs Date Time Temp Pulse Resp B/P (MAP) Pulse Ox O2 Delivery O2 Flow Rate FiO2 11/27/21 08:15 36.8 80 18 123/57 (79) 98 Room Air Capillary Refill : Less Than 3 Seconds I&O Intake and Output 11/27/21 00:00 Intake Total 2150 ml Balance 2150 ml Intake IV Total 2150 ml Daily Weight Change No General: Alert, No Acute Distress Lungs: Clear to Auscultation, Normal Air Movement Heart: Regular Rate, No Murmurs Abdomen: Other (fundus firm below umbilicus) Extremities: No Edema Neuro: Normal Speech Psych/Mental Status: Mood NL Results/Procedures Lab Laboratory Tests 11/27/21 06:13: White Blood Count 15.3H, Red Blood Count 3.59L, Hemoglobin 11.4L, Hematocrit 34L , Mean Corpuscular Volume 94, Mean Corpuscular Hemoglobin 32, Mean Corpuscular Hemoglobin Concent 34, Red Cell Distribution Width 12.8, Platelet Count 228, Mean Platelet Volume 10.4, Immature Granulocyte % (Auto) 1, Neutrophils (%) (Auto) 73, Lymphocytes (%) (Auto) 16, Monocytes (%) (Auto) 8, Eosinophils (%) (Auto) 2, Basophils (%) (Auto) 0, Neutrophils # (Auto) 11.1H, Lymphocytes # (Auto) 2.5, Monocytes # (Auto) 1.3H, Eosinophils # (Auto) 0.2, Basophils # (Auto) 0.1, Immature Granulocyte # (Auto) 0.1 Assessment/Plan Assessment/Plan (1) Spontaneous vaginal delivery Status: Acute Assessment & Plan: Routine care (2) 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
[2021-11-27] MEDS ORDERED: IBUP-844 PO (21:05)
[2021-11-28 02:42] VITALS: BP 122/75
[2021-11-28] MEDS: IBUPROFEN 600 MG (MOTRIN) TAB PO PRN ×2 (02:42→08:21)
[2021-11-28] MEDS ORDERED: MEASLES,MUMPS,RUBELLA 1 EA INJ ONE (08:12)
[2021-11-28] MEDS: DOCUSATE SODIUM 100 MG (COLACE) CAP PO SCH (08:21)
[2021-11-28 08:24] VITALS: BP 130/74
--- NOTE | 2021-11-28 11:43 | Discharge Summary ---
Discharge Summary Hospital Course Problems/Diagnosis: (1) Spontaneous vaginal delivery Status: Acute Assessment & Plan: Routine care (2) History of methamphetamine use Status: Chronic Assessment & Plan: In remission, director of social services consulted Hospital Course Date of Admission: Nov 26, 2021 at 05:55 Admission Diagnosis : Term intrauterine at 39 weeks Induction of labor planned History of substance use in early , in remission Family Physician/Provider: New Singletary MD Date of Discharge: 11/28/21 Discharge Diagnosis: See problem list Hospital Course: Pt admitted and underwent induction of labor without incident, uncomplicated , mild asymptomatic anemia. Routine course. student services rep consulted and DCF notified. Labs and Pending Lab Test: Home Meds Active Ibu (Ibuprofen) 600 Mg Tablet 600 Mg PO Q6HR PRN Formula ( Vit W-Ca,Fe,FA(<1 mg)) 28 Mg Iron-800 Mcg Tablet 1 Each PO DAILY 30 Days Reported Unisom (Doxylamine Succinate) 25 Mg Tablet 25 Mg PO DAILY Assessment/Pt DC Instructions Follow up with Dr. Singletary in 6 weeks for visit. Discharge Diet: No Restrictions Activity as Tolerated: Yes (avoid strenuous activity x 6 weeks) Discharge Physical Examination Allergies: Coded Allergies: No Known Drug Allergies (Unverified , 01/19/20) General Appearance: No Apparent Distress Respiratory: Lungs Clear, Normal Breath Sounds Cardiovascular: Regular Rate, Rhythm, No Murmur Extremity: No Pedal Edema Skin: Normal Color, Warm/Dry Neurologic/Psychiatric: Alert, Normal Mood/Affect NEW SINGLETARY MD Nov 28, 2021 11:43
== END 2021-11-28 12:51 | disposition home or self-care (01) | DRG 807 ==
LOC: LDRP 05:55
PROVIDERS: ADMIT Family Medicine; ATTEND Family Medicine
PROC: 10E0XZZ Delivery of Products of Conception, External Approach (ICD-10-PCS; principal; 2021-11-26)
PROC: 3E033VJ Introduction of Other Hormone into Peripheral Vein, Percutaneous Approach (ICD-10-PCS; 2021-11-26)
DX: O99.324 Drug use complicating childbirth (principal); Z37.0 Single live birth; F15.90 Other stimulant use, unspecified, uncomplicated; Z3A.39 39 weeks gestation of pregnancy; F12.90 Cannabis use, unspecified, uncomplicated; O66.0 Obstructed labor due to shoulder dystocia; O99.824 Streptococcus B carrier state complicating childbirth; O99.333 Smoking (tobacco) complicating pregnancy, third trimester; F17.200 Nicotine dependence, unspecified, uncomplicated; O90.81 Anemia of the puerperium; D64.9 Anemia, unspecified; Z23 Encounter for immunization
CPT/HCPCS: 36415; 80306; 85025; 86850; 86900; 86901; 90707